=== PATIENT | female | born 1990 | race Caucasian/White ===

== ENCOUNTER 2024-03-26 08:57 | Inpatient (IN) | payer OTHER ==
[~2024-03-26] VITALS: Ht 172.7 cm; Wt 127.0 kg
[2024-03-26 09:37] LABS: BASOPHILS # (AUTO) 0.1 K/uL (0.0-0.2); EOSINOPHILS % (AUTO) 0.5 % (0.0-6.0); HEMATOCRIT 44 % (33-45); HEMOGLOBIN 14.2 g/dL (11.5-14.8); LYMPHOCYTES # (AUTO) 1.9 K/uL (0.8-4.8); MEAN CORPUSCULAR HEMOGLOBIN 27 PG (26.0-33.0); MEAN CORPUSCULAR HGB CONC 32 g/dl (31.0-36.0); MEAN CORPUSCULAR VOLUME 83 fL (82-100); MONOCYTES # (AUTO) 0.6 K/uL (0.1-1.30); MONOCYTES % (AUTO) 8.9 % (2.0-12.0); NEUTROPHILS # (AUTO) 4.6 K/uL (1.8-8.9); NEUTROPHILS % (AUTO) 63.6 % (43.0-81.0); PLATELET COUNT (AUTO) 284 K/uL (150-450); RED BLOOD CELL COUNT(AUTO) 5.25 MIL/uL (4.0-5.2); RED CELL DISTRIBUTION WIDTH 21.1 % (11.5-15.0); WHITE BLOOD COUNT (AUTO) 7.3 K/uL (4.3-11.0)
[2024-03-26 09:47] LABS: CALCIUM, SERUM 10.2 mg/dL (8.5-10.1); CREATININE 0.7 mg/dL (0.6-1.3)
[2024-03-26 09:52] LABS: ALBUMIN 3.3 g/dL (3.4-5.0); BILIRUBIN,DIRECT 0.3 mg/dL (0.0-0.2); BILIRUBIN,TOTAL 1.2 mg/dL (0.2-1.0); TOTAL PROTEIN, SERUM 8.4 g/dL (6.4-8.2)
[2024-03-26] MEDS ORDERED: ONDA-97 PO (11:08)
[2024-03-26] MEDS ORDERED: SUCR1ORA15 PO (11:08)
[2024-03-26] MEDS ORDERED: HYDR-4209 PO (11:08)
[2024-03-26] MEDS ORDERED: TRAM100T39 PO (11:08)
[2024-03-26] MEDS ORDERED: PANT40TA49 PO (11:08)
[2024-03-26] MEDS ORDERED: TERB250T52 PO (11:08)
[2024-03-26] MEDS ORDERED: GABA-532 PO (11:08)
[2024-03-26] MEDS ORDERED: METO-295 PO (11:08)
[2024-03-26] MEDS ORDERED: FAMO40TA7 PO (11:08)
[2024-03-26] MEDS ORDERED: MECL-159 PO (11:08)
[2024-03-26] MEDS ORDERED: Z GUARD REMEDY 4 OZ OINT TP PRN (15:30)
[2024-03-26] MEDS: ENOXAPARIN SODIUM 40 MG/0.4 ML DISP.SYRIN SQ SCH (15:52)
[2024-03-26 16:07] VITALS: BP 136/76; TEMP 98.3; O2SAT 98
[2024-03-26] MEDS: IV LR 1000 ML 1,000 ML IV SCH (16:09)
[2024-03-26] MEDS: METOCLOPRAMIDE HCL 10 MG TABLET PO SCH (16:14)
[2024-03-26] MEDS: GABAPENTIN 300 MG CAPSULE PO SCH (16:14)
[2024-03-26] MEDS: MECLIZINE HCL 25 MG TABLET PO SCH (16:14)
[2024-03-26] MEDS: POTASSIUM CL. PREMIX PERIPHER. 50 ML IV SCH (16:22)
[2024-03-26 16:43] LABS: PHOSPHORUS 2.6 mg/dL (2.5-4.9)
[2024-03-26] MEDS: SUCRALFATE 1 G/10 ML UDC PO SCH (17:09)
[2024-03-26 17:24] LABS: THYROID STIMULATING HORMONE 0.94 uIU/mL (0.358-3.74)
[2024-03-26] MEDS: ONDANSETRON HCL/PF 4 MG/2 ML VIAL IVP PRN (18:31)
[2024-03-26 20:00] VITALS: BP 145/107; TEMP 97.7; O2SAT 99
[2024-03-27 04:00] VITALS: BP 135/95; TEMP 97.5; O2SAT 98
[2024-03-27 07:07] LABS: APPEARANCE,URINE SLIGHTLY CLOUDY (CLEAR); BILIRUBIN,URINE 2+ (NEGATIVE); BLOOD, URINE NEGATIVE Ery/uL (NEGATIVE); COLOR,URINE DARK YELLOW (YELLOW); KETONES,URINE TRACE mg/dL (NEGATIVE); LEUKOCYTE ESTERASE ,URINE NEGATIVE (NEGATIVE); NITRITE, URINE POSITIVE (NEGATIVE); PH,URINE 6.5 (5.0-8.0); PROTEIN,URINE 1+ mg/dl (NEGATIVE); UGLUCOSE TRACE mg/dL (NEGATIVE)
[2024-03-27 07:23] LABS: BASOPHILS % (AUTO) 0.5 % (0.0-2.0); EOSINOPHILS # (AUTO) 0.1 K/uL (0.0-0.7); EOSINOPHILS % (AUTO) 1.4 % (0.0-6.0); HEMATOCRIT 39 % (33-45); HEMOGLOBIN 12.9 g/dL (11.5-14.8); LYMPHOCYTES # (AUTO) 2.5 K/uL (0.8-4.8); LYMPHOCYTES % (AUTO) 44.5 % (20.0-44.0); MEAN CORPUSCULAR HEMOGLOBIN 28 PG (26.0-33.0); MEAN CORPUSCULAR HGB CONC 33 g/dl (31.0-36.0); MEAN CORPUSCULAR VOLUME 84 fL (82-100); MONOCYTES # (AUTO) 0.5 K/uL (0.1-1.30); MONOCYTES % (AUTO) 9.5 % (2.0-12.0); NEUTROPHILS # (AUTO) 2.5 K/uL (1.8-8.9); NEUTROPHILS % (AUTO) 44.1 % (43.0-81.0); PLATELET COUNT (AUTO) 245 K/uL (150-450); RED BLOOD CELL COUNT(AUTO) 4.68 MIL/uL (4.0-5.2); RED CELL DISTRIBUTION WIDTH 21.4 % (11.5-15.0); WHITE BLOOD COUNT (AUTO) 5.6 K/uL (4.3-11.0)
[2024-03-27 07:36] LABS: ALBUMIN 2.7 g/dL (3.4-5.0); BILIRUBIN,TOTAL 1.2 mg/dL (0.2-1.0); CALCIUM, SERUM 8.8 mg/dL (8.5-10.1); CREATININE 0.6 mg/dL (0.6-1.3); MAGNESIUM 1.9 mg/dL (1.8-2.4); PHOSPHORUS 3.3 mg/dL (2.5-4.9); TOTAL PROTEIN, SERUM 7.2 g/dL (6.4-8.2)
[2024-03-27 07:49] LABS: PREGNANCY TEST URINE QUAL NEGATIVE (NEGATIVE)
[2024-03-27 07:51] LABS: ADD URINE CULTURE YES; BACTERIA,URINE Few /HPF (None Seen); SQUAMOUS EPITHELIAL CELL,UR Rare /HPF (None Seen)
[2024-03-27 07:51] LABS: POTASSIUM 2.8 mmol/L (3.5-5.1)
[2024-03-27 08:00] VITALS: BP 122/95; TEMP 97.1; TEMP 97.9; O2SAT 100; O2SAT 99
[2024-03-27] MEDS: FOLIC ACID 1 MG TABLET PO SCH (09:04)
[2024-03-27] MEDS: SUCRALFATE 1 G TABLET PO SCH (09:04)
[2024-03-27] MEDS: POTASSIUM CHLORIDE 20 MEQ TAB.PRT.SR PO ONE (09:04)
[2024-03-27] MEDS: PANTOPRAZOLE 40 MG TABLET.DR PO SCH (09:05)
[2024-03-27] MEDS: MULTIVITAMINS,THERAGRAN 1 UDTAB TABLET PO SCH (09:05)
[2024-03-27] MEDS ORDERED: POTASSIUM CHLORIDE 20 MEQ TAB.PRT.SR PO ONE (09:30)
[2024-03-27] MEDS: POTASSIUM CL. PREMIX PERIPHER. 50 ML IV SCH (11:22)
[2024-03-27] MEDS: CYANOCOBALAMIN 1,000 MCG/ML VIAL IM ONE (11:23)
[2024-03-27] MEDS: PYRIDOXINE HCL 50 MG TABLET PO SCH (11:23)
[2024-03-27 12:00] VITALS: BP_SYST 120; BP_SYST 125; BP_DIAS 80; BP_DIAS 90; TEMP 97.2; O2SAT 99
[2024-03-27] MEDS ORDERED: VITAMIN E 1,000 UNIT CAPSULE PO SCH (12:00)
[2024-03-27] MEDS ORDERED: Thiamine 100 MG in IV D5W 50 ML IV SCH ×2 (12:00→12:30)
[2024-03-27] MEDS: VITAMIN E 400 UNIT CAPSULE PO SCH (12:18)
[2024-03-27] MEDS ORDERED: Thiamine 500 MG in IV D5W 250 ML IV SCH (13:00)
[2024-03-27] MEDS: Thiamine 500 MG in IV D5W 250 ML IV ONE (13:54)
[2024-03-27 16:00] VITALS: BP 130/93; TEMP 97.5; O2SAT 99
[2024-03-27 18:00] VITALS: BP 130/93; TEMP 97.5; O2SAT 98
[2024-03-27 21:53] VITALS: BP 123/88; TEMP 98.4; O2SAT 98
[2024-03-28] MEDS: ACETAMINOPHEN 325 MG TABLET PO PRN (01:37)
[2024-03-28] MEDS: IV LR 1000 ML 1,000 ML IV PRN (01:38)
[2024-03-28 04:51] VITALS: BP 134/99; TEMP 97.9; O2SAT 99
[2024-03-28 09:19] LABS: BASOPHILS % (AUTO) 0.8 % (0.0-2.0); EOSINOPHILS # (AUTO) 0.2 K/uL (0.0-0.7); EOSINOPHILS % (AUTO) 2.7 % (0.0-6.0); HEMATOCRIT 39 % (33-45); HEMOGLOBIN 12.9 g/dL (11.5-14.8); LYMPHOCYTES # (AUTO) 3.2 K/uL (0.8-4.8); LYMPHOCYTES % (AUTO) 51.7 % (20.0-44.0); MEAN CORPUSCULAR HEMOGLOBIN 28 PG (26.0-33.0); MEAN CORPUSCULAR HGB CONC 33 g/dl (31.0-36.0); MEAN CORPUSCULAR VOLUME 85 fL (82-100); MONOCYTES # (AUTO) 0.3 K/uL (0.1-1.30); MONOCYTES % (AUTO) 5.6 % (2.0-12.0); NEUTROPHILS # (AUTO) 2.4 K/uL (1.8-8.9); NEUTROPHILS % (AUTO) 39.2 % (43.0-81.0); PLATELET COUNT (AUTO) 244 K/uL (150-450); RED BLOOD CELL COUNT(AUTO) 4.58 MIL/uL (4.0-5.2); RED CELL DISTRIBUTION WIDTH 21.7 % (11.5-15.0); WHITE BLOOD COUNT (AUTO) 6.2 K/uL (4.3-11.0)
[2024-03-28 09:28] LABS: CALCIUM, SERUM 9.8 mg/dL (8.5-10.1); CREATININE 0.7 mg/dL (0.6-1.3)
[2024-03-28 09:29] LABS: POTASSIUM 2.8 mmol/L (3.5-5.1)
[2024-03-28] MEDS: POTASSIUM CHLORIDE 20 MEQ TAB.PRT.SR PO ONE (10:26)
[2024-03-28 10:49] VITALS: BP 132/96; TEMP 98.2; O2SAT 99
[2024-03-28 12:00] VITALS: BP 132/96; TEMP 98.2; O2SAT 96
[2024-03-28] MEDS: Thiamine 100 MG in IV D5W 50 ML IV SCH (14:04)
[2024-03-28 20:00] VITALS: BP 126/93; TEMP 97.8; O2SAT 99
[2024-03-29 04:00] VITALS: BP 131/93; TEMP 98.3; O2SAT 96
[2024-03-29 06:33] LABS: BASOPHILS % (AUTO) 0.7 % (0.0-2.0); EOSINOPHILS # (AUTO) 0.1 K/uL (0.0-0.7); EOSINOPHILS % (AUTO) 1.8 % (0.0-6.0); HEMATOCRIT 38 % (33-45); HEMOGLOBIN 12.4 g/dL (11.5-14.8); LYMPHOCYTES # (AUTO) 2.2 K/uL (0.8-4.8); LYMPHOCYTES % (AUTO) 38.3 % (20.0-44.0); MEAN CORPUSCULAR HEMOGLOBIN 28 PG (26.0-33.0); MEAN CORPUSCULAR HGB CONC 33 g/dl (31.0-36.0); MEAN CORPUSCULAR VOLUME 85 fL (82-100); MONOCYTES # (AUTO) 0.5 K/uL (0.1-1.30); MONOCYTES % (AUTO) 9.7 % (2.0-12.0); NEUTROPHILS # (AUTO) 2.8 K/uL (1.8-8.9); NEUTROPHILS % (AUTO) 49.5 % (43.0-81.0); PLATELET COUNT (AUTO) 236 K/uL (150-450); RED BLOOD CELL COUNT(AUTO) 4.46 MIL/uL (4.0-5.2); RED CELL DISTRIBUTION WIDTH 21.7 % (11.5-15.0); WHITE BLOOD COUNT (AUTO) 5.6 K/uL (4.3-11.0)
[2024-03-29 07:10] LABS: CALCIUM, SERUM 9.1 mg/dL (8.5-10.1); CREATININE 0.6 mg/dL (0.6-1.3); POTASSIUM 3.8 mmol/L (3.5-5.1)
[2024-03-29 08:00] VITALS: BP 130/98; TEMP 98.2; O2SAT 98
[2024-03-29 11:53] LABS: C-REACTIVE PROTEIN 0.62 mg/dL (0.0-0.30)
[2024-03-29] MEDS: THIAMINE IV SCH ×2 (12:54→21:11)
[2024-03-29] MEDS: D5W IV SCH ×2 (12:54→21:11)
[2024-03-29] MEDS ORDERED: IOHEXOL-300 100 ML VIAL IV ONE (13:31)
[2024-03-29] MEDS ORDERED: IV NS 0.9% 250 ML IV ONE (13:31)
[2024-03-29 16:00] VITALS: BP 119/98; TEMP 98.2; O2SAT 93
[2024-03-29] MEDS: GABAPENTIN 400 MG CAPSULE PO SCH (16:49)
[2024-03-29 20:00] VITALS: BP 108/81; TEMP 97.8; O2SAT 93
[2024-03-29] MEDS: SUCRALFATE 1 G TABLET PO ONE (20:11)
[2024-03-30 04:00] VITALS: BP 113/57; TEMP 97.7; O2SAT 93
[2024-03-30] MEDS: SUCRALFATE 1 G TABLET PO SCH (05:02)
[2024-03-30 08:00] VITALS: BP 131/92; TEMP 98.2; O2SAT 97
[2024-03-30] MEDS: VITAMIN E 400 UNIT CAPSULE PO SCH (08:24)
[2024-03-30] MEDS: PYRIDOXINE HCL 50 MG TABLET PO SCH (08:24)
[2024-03-30 09:11] LABS: FOLIC ACID 2.8 ng/mL (>3.0)
[2024-03-30] MEDS: MORPHINE SULFATE INJ 2 MG/ML DISP.SYRIN IV PRN (09:50)
[2024-03-30 11:10] LABS: INR 1.1 (0.91-1.10); PARTIAL THROMBOPLASTIN TIME 27.9 SEC (24.3-34.3); PROTHROMBIN TIME 11.6 SECS (9.2-11.1)
[2024-03-30] MEDS: SUCRALFATE 1 G TABLET PO ONE (12:35)
[2024-03-30] MEDS ORDERED: GABA-536 PO (15:09)
[2024-03-30] MEDS ORDERED: PYRI-6 PO (15:09)
[2024-03-30] MEDS ORDERED: Folic Acid PO (15:09)
[2024-03-30] MEDS ORDERED: THIA100T74 PO (15:09)
[2024-03-30 16:00] VITALS: BP 124/88; TEMP 98.1; O2SAT 98
[2024-03-31 13:09] LABS: *ANA ANTI-CENTROMERE B AB <0.2 AI (0.0-0.9); *ANA ANTI-DNA(DS) AB, QN <1 IU/mL (0-9); *ANA ANTICHROMATIN ANTIBODY <0.2 AI (0.0-0.9); *ANA RNP ANTIBODIES 0.5 AI (0.0-0.9); *ANA SJOGREN'S ANTI-SS-A <0.2 AI (0.0-0.9); *ANA SJOGREN'S ANTI-SS-B <0.2 AI (0.0-0.9); *ANAANTI-SCLERODERMA-70 AB <0.2 AI (0.0-0.9); *ANASMITH AB <0.2 AI (0.0-0.9)
[2024-03-31 15:08] LABS: *ANA ANTI-JO-1 <0.2 AI (0.0-0.9)
[2024-04-02 14:07] LABS: *SPE A/G RATIO 0.9 (0.7-1.7); *SPE ALPHA-1-GLOBULIN 0.3 g/dL (0.0-0.4); *SPE ALPHA-2-GLOBULIN 0.8 g/dL (0.4-1.0); *SPE GLOBULIN, TOTAL 3.5 g/dL (2.2-3.9); *SPE M-SPIKE Not Observed g/dL (Not Observed); *SPE PROTEIN TOTAL 6.5 g/dL (6.0-8.5); *SPEGAMMA GLOBULIN 1.5 g/dL (0.4-1.8)
[2024-04-03 14:10] LABS: VITAMIN B1 THIAMINE,WB 312.3 nmol/L (66.5-200.0)
== END 2024-03-30 17:08 | disposition home or self-care (01) | DRG 74 ==
LOC: ER 09:00 → TELE1 12:50 → MEDSG1 13:15
PROVIDERS: ADMIT Nurse Practitioner Acute Care; ATTEND Internal Medicine
DX: G62.9 Polyneuropathy, unspecified (principal); E44.0 Moderate protein-calorie malnutrition; Z68.41 Body mass index [BMI] 40.0-44.9, adult; E86.0 Dehydration; E87.6 Hypokalemia; E66.01 Morbid (severe) obesity due to excess calories; E83.52 Hypercalcemia; I10 Essential (primary) hypertension; Z98.84 Bariatric surgery status; R53.1 Weakness; E80.6 Other disorders of bilirubin metabolism; E53.9 Vitamin B deficiency, unspecified; M48.061 Spinal stenosis, lumbar region without neurogenic claudication; E56.8 Deficiency of other vitamins
CPT/HCPCS: 36415; 72132-TC; 80048-TC; 80053-TC; 80061-TC; 80076-TC; 81001; 82140-TC; 82550-TC; 82607-TC; 83540-TC; 83690-TC; 83735-TC; 83921; 84100-TC; 84132-TC; 84155; 84165; 84425; 84443-TC; 84703-TC; 85025-TC; 85610-TC; 85652-TC; 85730-TC; 86140-TC; 86225; 86235; 87086-TC; 97110-TC; 97530-TC; A4223; G0378; J1650; J2270; J2405; J3411; J3420; J3480; J7050; J7060; J7120; J8597; Q9967